=== PATIENT | female | born 1930 | race Caucasian/White ===

== ENCOUNTER → 2016-09-02 | Outpatient (CLI) | payer OTHER, MEDICARE | LOC: BHFA 09:15 | PROVIDERS: ATTEND Internal Medicine Cardiovascular Disease | DX: I34.0 Nonrheumatic mitral (valve) insufficiency (principal) ==

== ENCOUNTER 2016-11-25 13:02 | Day surgery (SDC) | payer OTHER, MEDICARE ==
[2016-11-25] MEDS ORDERED: ATROPINE SULFATE 1 MG/10 ML SYR IVP ONE (13:45)
[2016-11-25] MEDS ORDERED: DOBUTamine/DEXTROSE 250 ML IV ONE (14:00)
--- NOTE | 2016-11-25 14:38 | PDGENHP ---
History & Physical Chief Complaint: afib vhd History of Present Illness: pt is being evaluated for a mvr tvr and needs risk stratification by stress dobutamine test Pertinent Past, Social, Family History: afib for one year Relevant Physical Exam: lungs clear...heart irreg irreg rhythm sytolic murmur..no edema Cardiorespiratory Assessment: no cv c/o or sob
--- NOTE | 2016-11-25 15:22 | CPR ---
[f rep st] NONINVASIVE CARDIAC PROCEDURE REPORT DATE OF PROCEDURE: 11/25/2016 TEST: Stress dobutamine echocardiogram. INDICATION: Risk stratification prior to possible valvular surgery. PROCEDURE: After informed consent, patient was given dobutamine per protocol. She was monitored the whole time. She had her echocardiograms done at the prescribed times. She tolerated the whole proc edure well without complications or other issues. She rapidly recovered to baseline state in recover y. Her max heart rate was 95. She was taking beta blockers and calcium blockers, and actually took them today prior to the test. She is in chronic atrial fibrillation. Her exam was stable throughout the test. FINDINGS: No ischemic ST-T wave changes. Patient had augmentation of at least 10% to 15% in all car diac segments between rest and peak exercise. No ischemic wall motions were noted. 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 Jamaal r, this may be baseline. I did discuss with her that sometimes chronotropic incompetence can lead to dyspnea on exertion and she should further discuss this with her primary ultrasound technologist, Dr. Brewster. /[id number]/MODL
--- NOTE | 2016-11-25 15:51 | ECHO ---
[id number] + + [address] : : [place] [address] : : [phone] + + Stress Echocardiographic Report + ---------+ :Name: TESSA LAZO YStudy Date: 11/25/2016 01:41 PM : : Hospital Admission Number: [id number] Loca tion: CVC: :: 1930 Gender: Female Height: 69 i n : :Age: 86 yrs Race: WH Weight: 136 lb : :Reason For Study: Eval LV function/MR and TR : : BSA: 1.8 met ers2 : + ---------+ Mitral Valve There is moderate to severe mitral regurgitation. Tricuspid Valve There is severe tricuspid regurgitation. Conclusion Normal dobutamine stress echo. pt had augmentation of all plasencia with dobutamine stress...heart rate was blunted probably by calcium channel and beta srinivasan meds..cannot r/o underlying chronotrophic incompetence. There is moderate to severe mitral regurgitation. There is severe tricuspid regurgitation. Normal dobutamine stress echo. pt had augmentation of all plasencia with dobutamine stress...heart rate was blunted probably by calcium channel and beta srinivasan meds..cannot r/o underlying chronotrophic incompetence Reading Physician: Basim Hawthorne MD electronically signed on 11/25/2016 03:50 PM Ordering Physician: Jamison Brewster MD Performed By: Ashley Alford RDCS
== END 2016-11-25 16:09 | disposition home or self-care (01) ==
LOC: FCATH 13:02 → EDSTATUS 13:30 → FCATH 16:09
PROVIDERS: ATTEND Internal Medicine Cardiovascular Disease
PROC: 4A12XM4 Monitoring of Cardiac Stress, External Approach (ICD-10-PCS; principal; 2016-11-25)
DX: I08.0 Rheumatic disorders of both mitral and aortic valves (principal); I48.91 Unspecified atrial fibrillation; I47.1 Supraventricular tachycardia; I10 Essential (primary) hypertension
CPT/HCPCS: J0461; J1250

== ENCOUNTER 2018-05-05 11:37 | Emergency (ER) | payer OTHER, MEDICARE ==
[2018-05-05] MEDS ORDERED: LABETALOL HCL 5 MG/ML 20 ML MDV IVP ONE (12:35)
--- NOTE | 2018-05-05 12:35 | EDPHY ---
H & P Stated Complaint: dominguez x 2wks . denies vision or balance issues . denies ext weakness. Time Seen by Provider: 05/05/18 11:45 HPI/ROS: 87 yo F presents c/o left occipital headache that comes and goes for the last several weeks, sometimes achy, sometimes sharp in nature. No associated symptoms, no nausea or vomiting, no ear ache. She did notice some blood in her left ear the first day she experienced the pain and her son roscoe put her on short course of antibiotics, she does not feel that changed anything. Review of systems As per HPI General no fever no chills no weakness HEENT no eye pain no eye discharge. No eye redness, no sore throat Respiratory no cough, no shortness of breath Cardiac no chest pain, no peripheral edema GI no abdominal pain, no diarrhea, no constipation, no nausea, no vomiting no flank pain, no hematuria, no dysuria Musculoskeletal no myalgias, no joint pain Heme no easy bruising, no easy bleeding Endo no polyuria, no polydipsia Skin no rashes, no pruritus Neuro no syncope, no dizziness, positive headaches Psych is no suicidal ideation, no homicidal ideation Source: Patient Exam Limitations: No limitations - Personal History Current Tetanus/Diphtheria Vaccine: Unsure Current Tetanus Diphtheria and Acellular Pertussis (TDAP): Unsure Tetanus Vaccine Date: 2004 - Medical/Surgical History Hx Asthma: No Hx Chronic Respiratory Disease: No Hx Diabetes: No Hx Cardiac Disease: No Hx Renal Disease: No Hx Cirrhosis: No Hx Alcoholism: No Hx HIV/AIDS: No Hx Splenectomy or Spleen Trauma: No Other PMH: HTN,LAMINECTOMY - Family History Significant Family History: No pertinent family hx - Social History Smoking Status: Never smoked Alcohol Use: None Drug Use: None - Physical Exam Exam: 87-year-old female alert and oriented no acute distress nontoxic appearance, afebrile Atraumatic normocephalic Left occipital scalp with no rash no swelling no ecchymosis nontender to palpation TMs clear bilaterally Extraocular muscles intact, anicteric Oropharynx no erythema no exudate Lungs clear to auscultation bilaterally Heart regular rate and rhythm Abdomen nondistended bowel sounds present soft Extremities no CCE Neuro alert and oriented sensory and motor intact Gait intact, negative pronator drift Constitutional: Initial Vital Signs Temperature (C) 36.4 C 05/05/18 11:48 Heart Rate 83 02/21/19 11:48 Respiratory Rate 16 05/05/18 11:48 Blood Pressure 164/105 H 05/05/18 11:48 O2 Sat (%) 96 05/05/18 11:48 O2 Delivery Mode Room Air Allergies/Adverse Reactions: Penicillins Allergy (Severe, Verified 05/05/18 11:57) Hives Home Medications: Medication Instructions Recorded Lisinopril 05/10/09 PRAVASTATIN SODIUM 05/10/09 Toprol Xl 05/10/09 Amlodipine Besylate 06/18/14 Calcium 05/05/18 Glucosamine 05/05/18 Warfarin Sodium 05/05/18 Medical Decision Making - Diagnostics Imaging Results: Imaging Impressions Head CT 05/05/18 12:28 Impression: 1. No acute intracranial findings. If symptoms persist and clinical suspicion warrants, consider MRI. 2.Diffuse cerebral atrophy with periventricular and subcortical low attenuation consistent with chronic microvascular ischemic gliosis. 3. Additional findings as above. Findings discussed with Teresa Hassan MD 05/05/2018 at 12:57. ED Course/Re-evaluation: Patient seen and evaluated for left occipital headache of 3 weeks duration No associated symptoms Physical exam benign IV established blood work sent CBC within normal limits BMP mildly elevated sodium of 147. And calcium at 10.5 Sed rate normal CRP normal CT brain no evidence for mastoiditis sinusitis no brain masses no brain bleed Patient given 1 dose of labetalol 10 mg with good response by her blood pressure Also given acetaminophen 1 g p. O. For headache Impression Left occipital headache Plan Discharge home Follow-up primary Return if worsen Differential Diagnosis: Differential diagnosis considered but not limited to Brain tumor, cerebrovascular accident, mastoiditis, trigeminal neuralgia, subarachnoid hemorrhage - Data Points Laboratory Results: Laboratory Results 05/05/18 12:27 05/05/18 05/05/18 05/05/18 12:59 12:27 12:26 Hct 53.4 % H % (38.0-47.0) ESR 11 MM/HR MM/HR (0-30) POC Sodium 147 mEq/L H mEq/L (135-145) POC Potassium 4.2 mEq/L mEq/L (3.3-5.0) POC Chloride 108.0 mEq/L mEq/L (97-110) POC Total CO2 27 mEq/L mEq/L (22-31) POC BUN 16 mg/dL mg/dL (7-23) POC Creatinine 1.0 mg/dL mg/dL (0.6-1.0) POC Glucose 97 mg/dL mg/dL (70-100) POC Calcium 10.5 mg/dL H mg/dL (8.5-10.4) C-React Prot High Sens 1.3 mg/L mg/L Medications Given: Discontinued Medications Acetaminophen (Tylenol) 1,000 mg PO EDNOW ONE Stop: 05/05/18 14:27 Last Admin: 05/05/18 14:38 Dose: 1,000 mg Labetalol HCl (Trandate Injection) 10 mg IVP ONCE ONE Stop: 05/05/18 12:36 Last Admin: 05/05/18 13:18 Dose: 10 mg Point of Care Test Results: CBC CBC Collection Date 05/05/18 CBC Collection Time 12:45 WBC 7.29 RBC 5.52 HGB 17.5 HCT 52.5 PLT 149 Neut # 4.71 Neut 64.7 LYMPH # 1.75 LYMPH 24 MCV 95.1 Chemistry 05/05/18 12:59 POC Sodium 147 mEq/L H mEq/L (135-145) POC Potassium 4.2 mEq/L mEq/L (3.3-5.0) POC Chloride 108.0 mEq/L mEq/L (97-110) POC Total CO2 27 mEq/L mEq/L (22-31) POC BUN 16 mg/dL mg/dL (7-23) POC Creatinine 1.0 mg/dL mg/dL (0.6-1.0) POC Glucose 97 mg/dL mg/dL (70-100) POC Calcium 10.5 mg/dL H mg/dL (8.5-10.4) Departure - Departure Disposition: Home, Routine, Self-Care Clinical Impression: Headache Condition: Good Instructions: Acute Headache (ED) Referrals: Liza Alberto MD [Primary Care Provider] - As per Instructions
[2018-05-05] MEDS ORDERED: ACETAMINOPHEN 500 MG TAB PO ONE (14:26)
[2018-05-05 15:09] VITALS: BP 145/85
== END 2018-05-05 14:50 | disposition home or self-care (01) ==
LOC: CED 11:37
DX: R51 Headache (principal)
CPT/HCPCS: 70450-PO; 80048-ER; 86141-90; 96374-ER